=== PATIENT | male | born 2000 | race Caucasian/White ===

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

== ENCOUNTER → 2021-04-12 | Outpatient (REF) | payer OTHER ==
[2021-04-12 20:44] LABS: RSV AMPLIFICATION POSITIVE (NEGATIVE)
== END ==
LOC: M LAB REF 17:00
PROVIDERS: ATTEND Specialist
DX: J06.9 Acute upper respiratory infection, unspecified (principal)

== ENCOUNTER → 2021-06-28 | Outpatient (REF) | payer OTHER | LOC: M LAB REF 10:01 | PROVIDERS: ATTEND Specialist | DX: J01.90 Acute sinusitis, unspecified (principal) ==

== ENCOUNTER → 2021-11-25 | Outpatient (REF) | payer OTHER | LOC: M LAB REF 16:41 | PROVIDERS: ATTEND Pediatrics | DX: L02.31 Cutaneous abscess of buttock (principal) ==

== ENCOUNTER → 2024-03-09 | Outpatient (CLI) | payer OTHER ==
[2024-03-09 14:58] LABS: THYROXINE (T4) 9.6 UG/DL (4.5-10.9)
[2024-03-09 14:59] LABS: FREE T3 3.5 PG/ML (2.3-4.2); THYROID PEROXIDASE ANTIBODY < 28.0 U/ML (<60.0)
[2024-03-09 15:00] LABS: FREE T4 1.35 NG/DL (0.89-1.76); THYROID STIMULATING HORMONE 0.844 uIU/ML (0.55-4.78)
== END ==
LOC: M LAB 14:03
PROVIDERS: ATTEND Registered Nurse
DX: R07.0 Pain in throat (principal)

== ENCOUNTER → 2024-05-05 | Outpatient (REF) | payer OTHER | LOC: M WUC 20:31 | PROVIDERS: ATTEND Student in an Organized Health Care Education/Training Program | DX: J06.9 Acute upper respiratory infection, unspecified (principal) ==